=== PATIENT | male | born 1990 | race Two or more races ===

== ENCOUNTER 2025-02-17 12:53 | Emergency (ER) | payer OTHER, SELFPAY ==
[2025-02-17 12:54] VITALS: BMI 28.0
--- NOTE | 2025-02-17 13:02 | PC.NURSE ---
KHLOE MARTINEZ CONTACTED AT THIS TIME WITH OFFICER WILL CONTACT PATIENT VIA PHONE.
[2025-02-17 13:25] VITALS: BP 146/86; PULSE 57; RESP 18; TEMP 37.2; O2SAT 99
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
--- NOTE | 2025-02-17 14:04 | XR_ITS ---
Examination: Hand, right 3 views Technique: Hand AP, oblique, lateral 3 views Date and time of exam: February 17, 2025, 1430 hrs. Indications: Injury to the hand one week ago with hand pain. Findings: Fracture deformity or old fifth metacarpal Soft tissue swelling dorsum of the hand. Impression: No acute fracture
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
[2025-02-17] MEDS: IBUPROFEN TAB 400 MG TABLET 800 MG PO (16:48)
== END 2025-02-17 16:51 | disposition home or self-care (01) ==
PROVIDERS: Emergency Provider Emergency Medicine
DX: S60.221A Contusion of right hand, initial encounter (principal); W51.XXXA Accidental striking against or bumped into by another person, initial encounter; M79.631 Pain in right forearm
CPT/HCPCS: 73090; 73120; 99283; A9270